=== PATIENT | male | born 1955 | race African-American/Black ===

== ENCOUNTER 2018-05-03 19:06 | Inpatient (IN) | payer MEDICAID ==
[~2018-05-03] VITALS: Ht 180.3 cm; Wt 129.3 kg
[~2018-05-03 19:06] MED LIST: ASPI-1159 PO; ATOR40TA70 PO; GLIM4TAB2 PO
[2018-05-03] MEDS ORDERED: SODIUM CHLORIDE 0.9% 1,000 ML IV ONE (20:40)
[2018-05-03] MEDS ORDERED: RANI150C12 MT (21:08)
[2018-05-03] MEDS ORDERED: OMEP40CA34 MT (21:08)
[2018-05-03] MEDS ORDERED: AMLO5TAB88 MT (21:08)
[2018-05-03] MEDS ORDERED: EZET10TA26 MT (21:08)
[2018-05-03] MEDS ORDERED: LISI-604 MT (21:08)
[2018-05-03] MEDS ORDERED: CLONIDINE 0.1MG TABLET PO ONE (21:15)
[2018-05-03 23:22] LABS: BASOPHILS % 0.3 % (0.0-2.0); EOSINOPHILS % 0.1 % (0.0-5.0); HEMATOCRIT. 29.4 % (42.0-52.0); HEMOGLOBIN. 9.4 g/dL (14.0-18.0); LYMPHOCYTES % 11.2 % (20.0-50.0); MEAN CORPUSCULAR VOLUME 84.1 fL (80.0-94.0); MEAN PLATELET VOLUME 8.3 fl (7.4-10.4); MONOCYTES % 5.7 % (2.0-8.0); NEUTROPHILS % 82.7 % (40.0-76.0); PLATELET 257 x1000/uL (130-400); RED CELL DISTRIBUTION WIDTH 15.4 % (11.6-14.6)
[2018-05-03 23:28] LABS: CHLORIDE 112 mEq/L (98-107); PROTHROMBIN TIME 10.1 sec (9.1-11.1)
[2018-05-03] MEDS ORDERED: DEXTROSE 50% WATER 50ML SYRINGE IV ONE (23:45)
[2018-05-04] MEDS ORDERED: ASPIRIN 81MG TABLET PO SCH (00:45)
[2018-05-04] MEDS ORDERED: FUROSEMIDE 40MG/4ML VIAL IVP SCH (00:45)
[2018-05-04] MEDS ORDERED: DEXTROSE 50% WATER 50ML SYRINGE IV ONE (06:15)
[2018-05-04] MEDS ORDERED: DOCUSATE SODIUM 100MG CAPSULE PO PRN (10:30)
[2018-05-04] MEDS ORDERED: HYDRALAZINE 20MG/ML VIAL IV SCH (10:30)
[2018-05-04] MEDS ORDERED: LORAZEPAM 0.5MG TABLET PO PRN (10:30)
[2018-05-04] MEDS ORDERED: ACETAMINOPHEN 325MG TABLET PO PRN (10:30)
[2018-05-04] MEDS ORDERED: HYDROCODONE/ACETAMINOPHEN 5/325MG TABLET PO PRN (10:30)
[2018-05-04] MEDS ORDERED: ONDANSETRON HCL 4MG/2ML INJ IV PRN (10:30)
[2018-05-04] MEDS ORDERED: IPRATROPIUM/ALBUTEROL 0.5-3(2.5)MG/3ML NEB INH PRN (10:30)
[2018-05-04] MEDS ORDERED: AMLODIPINE 5MG TABLET PO SCH (10:30)
[2018-05-04] MEDS: ATORVASTATIN CALCIUM 40MG TABLET PO SCH (11:18)
[2018-05-04] MEDS: ASPIRIN 81MG TABLET PO SCH (11:18)
[2018-05-04 11:27] VITALS: BP 186/104
[2018-05-04 12:00] VITALS: BP 190/101
[2018-05-04 13:47] LABS: PHOSPHORUS 3.6 mg/dL (2.5-4.9)
[2018-05-04 13:53] LABS: CREATINE KINASE MB FRACTION 5.8 ng/mL (0.5-3.6)
[2018-05-04 16:00] VITALS: BP 186/99
[2018-05-04] MEDS: CLONIDINE 0.1MG TABLET PO PRN (16:39)
[2018-05-04] MEDS: FUROSEMIDE 40MG TABLET PO SCH (16:39)
[2018-05-04 20:00] VITALS: BP 149/82
[2018-05-04] MEDS: AMLODIPINE 5MG TABLET PO SCH (21:01)
[2018-05-04] MEDS: DOXAZOSIN MESYLATE 4MG TABLET PO SCH (21:01)
[2018-05-04] MEDS ORDERED: DEXTROSE 50% WATER 50ML SYRINGE IV PRN (22:15)
[2018-05-04] MEDS: INSULIN GLARGINE UD 100 UNITS/ML SYR SUBCUT SCH (22:17)
[2018-05-05] VITALS: BP 158/79
[2018-05-05 00:07] LABS: CLARITY URINE CLEAR (CLEAR); COLOR URINE YELLOW (YELLOW); KETONES URINE NEGATIVE (NEGATIVE); LEUKOCYTE ESTERASE URINE NEGATIVE (NEGATIVE); NITRITE URINE NEGATIVE (NEGATIVE); OCCULT BLOOD URINE 1+ (NEGATIVE); PH URINE 6.5 (4.5-8.0); PROTEIN URINE 4+ (NEGATIVE); SPECIFIC GRAVITY URINE 1.016 (1.005-1.030); UROBILINOGEN URINE 0.2 E.U./dL (0.2-1.0)
[2018-05-05 00:50] LABS: *AMPHETAMINES SCREEN URINE NEGATIVE (NEGATIVE); *BARBITURATES SCREEN URINE NEGATIVE (NEGATIVE)
[2018-05-05 00:51] LABS: *BENZODIAZEPINES SCREEN URINE NEGATIVE (NEGATIVE); *COCAINE SCREEN URINE NEGATIVE (NEGATIVE)
[2018-05-05 00:52] LABS: CANNABINOID URINE SCREEN NEGATIVE (NEGATIVE); METHADONE URINE SCREEN NEGATIVE (NEGATIVE); OPIATES URINE SCREEN NEGATIVE (NEGATIVE); PHENCYCLIDINE URINE SCREEN NEGATIVE (NEGATIVE)
[2018-05-05 04:00] VITALS: BP 160/92
[2018-05-05] MEDS: BLOOD SUGAR DIAGNOSTIC STRIP TEST SCH ×4 (05:57→21:00)
[2018-05-05] MEDS: INSULIN LISPRO 100 UNITS/ML SUBCUT SCH ×4 (06:00→21:00)
[2018-05-05 08:00] VITALS: BP 155/76
[2018-05-05] MEDS: FUROSEMIDE 40MG TABLET PO SCH (08:24)
[2018-05-05] MEDS: ATORVASTATIN CALCIUM 40MG TABLET PO SCH (08:24)
[2018-05-05] MEDS: AMLODIPINE 5MG TABLET PO SCH ×2 (08:25→21:14)
[2018-05-05] MEDS: ASPIRIN 81MG TABLET PO SCH (08:25)
[2018-05-05] MEDS: INSULIN GLARGINE UD 100 UNITS/ML SYR SUBCUT SCH ×2 (10:45→21:20)
[2018-05-05 16:00] VITALS: BP 157/83
[2018-05-05 16:07] LABS: HEPATITIS A AB IGM NEGATIVE (NEGATIVE)
[2018-05-05] MEDS: CLONIDINE 0.1MG TABLET PO PRN (17:46)
[2018-05-05] MEDS: DOXAZOSIN MESYLATE 4MG TABLET PO SCH (21:14)
[2018-05-05 21:46] VITALS: BP 167/87
[2018-05-06] VITALS: BP 175/86
[2018-05-06] MEDS: CLONIDINE 0.1MG TABLET PO PRN (00:44)
[2018-05-06 04:30] VITALS: BP 157/81
[2018-05-06] MEDS: BLOOD SUGAR DIAGNOSTIC STRIP TEST SCH ×2 (06:46→12:02)
[2018-05-06] MEDS: INSULIN LISPRO 100 UNITS/ML SUBCUT SCH ×2 (06:46→12:02)
[2018-05-06] MEDS: ASPIRIN 81MG TABLET PO SCH (09:02)
[2018-05-06] MEDS: AMLODIPINE 5MG TABLET PO SCH (09:02)
[2018-05-06] MEDS: FUROSEMIDE 40MG TABLET PO SCH (09:02)
[2018-05-06] MEDS: ATORVASTATIN CALCIUM 40MG TABLET PO SCH (09:02)
[2018-05-06] MEDS: INSULIN GLARGINE UD 100 UNITS/ML SYR SUBCUT SCH (10:03)
[2018-05-06 12:51] VITALS: BP 152/82
[2018-05-06] MEDS ORDERED: DOXA4TAB2 PO (15:35)
[2018-05-06] MEDS ORDERED: LANTUSUD SUBCUT (15:35)
[2018-05-06] MEDS ORDERED: COR6 PO (15:35)
[2018-05-06] MEDS ORDERED: AMLO5TAB88 PO (15:35)
[2018-05-06 16:54] VITALS: BP 167/75
[2018-05-06 18:06] LABS: HEPATITIS B SURFACE ANTIGEN NEGATIVE
[2018-05-06] MEDS ORDERED: CARVEDILOL 6.25 MG TABLET PO SCH (21:00)
[2018-05-07 13:07] LABS: A/G RATIO 0.7 (0.7-1.7); ALBUMIN 2.1 g/dL (2.9-4.4); ALPHA-1-GLOBULIN 0.2 g/dL (0.0-0.4); ALPHA-2-GLOBULIN 0.7 g/dL (0.4-1.0); GAMMA GLOBULINS 1.1 g/dL (0.4-1.8); GLOBULIN TOTAL 3.1 g/dL (2.2-3.9); M-SPIKE Not Observed g/dL (Not Observed); TOTAL PROTEIN SERUM 5.2 g/dL (6.0-8.5)
[2018-05-10 05:10] LABS: ALDOSTERONE < 1.0 ng/dL (0.0-30.0)
== END 2018-05-06 18:10 | disposition home health service (06) | DRG 951 ==
LOC: ER 19:06 → 8WST 05-04 00:34 → ENRESERV 05-04 07:17 → 8WST 05-04 10:13
PROVIDERS: ADMIT Internal Medicine; ATTEND Internal Medicine
PROC: 0KBW0ZZ Excision of Left Foot Muscle, Open Approach (ICD-10-PCS; principal; 2018-05-05)
DX: E11.52 Type 2 diabetes mellitus with diabetic peripheral angiopathy with gangrene (principal); E43 Unspecified severe protein-calorie malnutrition; N17.9 Acute kidney failure, unspecified; I96 Gangrene, not elsewhere classified; E11.22 Type 2 diabetes mellitus with diabetic chronic kidney disease; E27.8 Other specified disorders of adrenal gland; M62.82 Rhabdomyolysis; E11.42 Type 2 diabetes mellitus with diabetic polyneuropathy; L97.529 Non-pressure chronic ulcer of other part of left foot with unspecified severity; E11.319 Type 2 diabetes mellitus with unspecified diabetic retinopathy without macular edema; E11.649 Type 2 diabetes mellitus with hypoglycemia without coma; I16.0 Hypertensive urgency; R55 Syncope and collapse; D64.9 Anemia, unspecified; E78.5 Hyperlipidemia, unspecified; D72.829 Elevated white blood cell count, unspecified; I13.10 Hypertensive heart and chronic kidney disease without heart failure, with stage 1 through stage 4 chronic kidney disease, or unspecified chronic kidney disease; I87.8 Other specified disorders of veins; L57.0 Actinic keratosis; N18.2 Chronic kidney disease, stage 2 (mild); E88.09 Other disorders of plasma-protein metabolism, not elsewhere classified; E66.01 Morbid (severe) obesity due to excess calories; N52.9 Male erectile dysfunction, unspecified; Z79.4 Long term (current) use of insulin; Z86.73 Personal history of transient ischemic attack (TIA), and cerebral infarction without residual deficits; Z91.19 Patient's noncompliance with other medical treatment and regimen; Z87.891 Personal history of nicotine dependence; Z82.49 Family history of ischemic heart disease and other diseases of the circulatory system; Z79.899 Other long term (current) drug therapy; Z79.84 Long term (current) use of oral hypoglycemic drugs; Z79.82 Long term (current) use of aspirin; Z68.39 Body mass index [BMI] 39.0-39.9, adult; Z71.3 Dietary counseling and surveillance
CPT/HCPCS: 36415; 71045; 76770; 76857; 80048; 80061; 80305; 82088; 82550; 82553; 82570; 82962; 83036; 83735; 83880; 84100; 84155; 84156; 84165; 84244; 84443; 84484; 86705; 86709; 86803; 87340; 93005; 93306; 93923; 96374; 96375; 99291; J0360; J1815; J1940; J7030; J7620

== ENCOUNTER 2018-07-21 13:40 | Emergency (ER) | payer MEDICAID ==
[~2018-07-21] VITALS: Ht 175.3 cm; Wt 137.0 kg
[~2018-07-21 13:40] MED LIST changes: +AMLO5TAB88 PO; +COR6 PO; +DOXA4TAB2 PO; +EZET10TA26 MT; -GLIM4TAB2 PO; +LANTUSUD SUBCUT; +OMEP40CA34 MT
[2018-07-21] MEDS ORDERED: CLONIDINE 0.2MG TABLET PO ONE (16:45)
[2018-07-21 17:45] VITALS: BP 189/100
== END 2018-07-21 17:46 | disposition home or self-care (01) ==
LOC: ER 13:40
DX: T62.8X1A Toxic effect of other specified noxious substances eaten as food, accidental (unintentional), initial encounter (principal); Y92.89 Other specified places as the place of occurrence of the external cause; E11.9 Type 2 diabetes mellitus without complications; E78.00 Pure hypercholesterolemia, unspecified; I10 Essential (primary) hypertension; Z86.73 Personal history of transient ischemic attack (TIA), and cerebral infarction without residual deficits; Z79.82 Long term (current) use of aspirin; Z79.899 Other long term (current) drug therapy; Z79.4 Long term (current) use of insulin
CPT/HCPCS: 99283; Z7610; A4315

== ENCOUNTER 2018-12-28 19:31 | Inpatient (IN) | payer MEDICARE, MEDICAID ==
[~2018-12-28] VITALS: Ht 180.3 cm; Wt 147.4 kg
[~2018-12-28 19:31] MED LIST changes: -ASPI-1159 PO; +ASPI-1393 PO
[2018-12-28] MEDS ORDERED: ASPIRIN 81MG TABLET PO ONE (21:00)
[2018-12-28] MEDS ORDERED: FUROSEMIDE 40MG/4ML VIAL IVP ONE (21:00)
[2018-12-28 21:19] LABS: CHLORIDE 117 mEq/L (98-107)
[2018-12-28 21:21] LABS: INR 1.1; PARTIAL THROMBOPLASTIN TIME 29.5 sec (23.4-31.0); PROTHROMBIN TIME 11.3 sec (9.6-11.0)
[2018-12-28 21:32] LABS: BASOPHILS % 0.8 % (0.0-2.0); EOSINOPHILS % 2.3 % (0.0-5.0); LYMPHOCYTES % 11.4 % (20.0-50.0); MEAN CORPUSCULAR HEMOGLOBIN 26.8 pg (28.0-32.0); MEAN CORPUSCULAR VOLUME 81.5 fL (80.0-94.0); MEAN PLATELET VOLUME 7.3 fl (7.4-10.4); MONOCYTES % 9.5 % (2.0-8.0); PLATELET 251 x1000/uL (130-400); RED BLOOD CELL COUNT 2.47 mill/uL (4.7-6.1)
[2018-12-28 21:33] LABS: HEMOGLOBIN. 6.6 g/dL (14.0-18.0)
[2018-12-28 21:34] LABS: HEMATOCRIT. 20.1 % (42.0-52.0)
[2018-12-28] MEDS ORDERED: FUROSEMIDE 100MG/10ML VIAL IV STA (22:17)
[2018-12-28] MEDS ORDERED: MAGNESIUM/ALUMINUM HYDROXIDE/SIMETHICONE 30ML UDC PO PRN (22:30)
[2018-12-28] MEDS ORDERED: ONDANSETRON HCL 4MG/2ML INJ IV PRN (22:30)
[2018-12-28] MEDS ORDERED: GUAIFENESIN 200MG/10ML SUGAR FREE UDC PO PRN (22:30)
[2018-12-28] MEDS ORDERED: SODIUM BICARBONATE 8.4% 1 MEQ/ML 50ML SYR IV ONE (22:30)
[2018-12-28] MEDS ORDERED: ALBUTEROL (0.083%) 2.5MG/3ML NEB HHN ONE (22:30)
[2018-12-28] MEDS ORDERED: CALCIUM GLUCONATE 100MG/ML 10ML VIAL IV ONE (22:30)
[2018-12-28] MEDS ORDERED: DOCUSATE SODIUM 100MG CAPSULE PO PRN (22:30)
[2018-12-28] MEDS ORDERED: DEXTROSE 50% WATER 50ML SYRINGE IV ONE (22:30)
[2018-12-28] MEDS ORDERED: SODIUM POLYSTYRENE SULFONATE 15 G/60 ML BOT PO ONE (22:30)
[2018-12-28] MEDS ORDERED: ACETAMINOPHEN 325MG TABLET PO PRN (22:30)
[2018-12-28] MEDS ORDERED: INSULIN REGULAR (HUMULIN R) 300UNITS/3ML IV ONE (22:30)
[2018-12-29] MEDS ORDERED: SODIUM POLYSTYRENE SULFONATE 15 G/60 ML BOT PO SCH (01:00)
[2018-12-29] MEDS ORDERED: DEXTROSE 50% WATER 50ML SYRINGE IV ONE ×2 (01:12→01:56)
[2018-12-29 02:31] VITALS: BP 167/85
[2018-12-29] MEDS ORDERED: SODIUM CHLORIDE 0.45% 1,000 ML IV SCH (03:10)
[2018-12-29] MEDS ORDERED: LISI-604 MT (03:29)
[2018-12-29 04:00] VITALS: BP 145/86
[2018-12-29] MEDS ORDERED: DEXTROSE 50% WATER 50ML SYRINGE IV PRN (06:45)
[2018-12-29] MEDS: INSULIN LISPRO 100 UNITS/ML SUBCUT SCH ×4 (07:50→21:00)
[2018-12-29 08:00] VITALS: BP 177/89
[2018-12-29] MEDS: BLOOD SUGAR DIAGNOSTIC STRIP TEST SCH ×4 (08:06→21:00)
[2018-12-29] MEDS ORDERED: FUROSEMIDE 40MG/4ML VIAL IVP NR (09:00)
[2018-12-29] MEDS ORDERED: SODIUM POLYSTYRENE SULFONATE 15 G/60 ML BOT PO NR (09:00)
[2018-12-29 09:22] LABS: BG BASE EXCESS -10.9 mmol/L (-2.0-2.0); BG CARBOXYHEMOGLOBIN 0.8 % (0.5-1.5); BG DEOXYHEMOGLOBIN 4.3 % (0.0-5.0); BG FRACTION INSPIRED OXYGEN 21; BG HCO3 ACT 14.3 mmol/L (22.0-26.0); BG METHEMOGLOBIN 0.3 % (0.0-1.5); BG OXYGEN SATURATION 95.7 % (92.0-98.5); BG OXYHEMOGLOBIN 94.6 % (94.0-97.0); BG PCO2 28.5 mmHg (35.0-45.0); BG PH 7.317 (7.350-7.450); BG PO2 85.9 mmHg (75.0-100.0); BG SAMPLE SITE RIGHT FEMORAL; BG TOTAL HEMOGLOBIN 6.5 g/dL (12.0-18.0); BG VENT MODE ROOM AIR
[2018-12-29] MEDS: CITRIC ACID/SODIUM CITRATE SOLN 30ML UDC PO SCH ×3 (09:51→17:00)
[2018-12-29] MEDS: CLONIDINE 0.1MG TABLET PO PRN (09:51)
[2018-12-29] MEDS: AMLODIPINE 10MG TABLET PO SCH (09:51)
[2018-12-29 12:00] VITALS: BP 163/79
[2018-12-29 15:54] LABS: *COCAINE SCREEN URINE NEGATIVE (NEGATIVE); CANNABINOID URINE SCREEN NEGATIVE (NEGATIVE); METHADONE URINE SCREEN NEGATIVE (NEGATIVE); OPIATES URINE SCREEN NEGATIVE (NEGATIVE); PHENCYCLIDINE URINE SCREEN NEGATIVE (NEGATIVE)
[2018-12-29 15:57] LABS: *BENZODIAZEPINES SCREEN URINE NEGATIVE (NEGATIVE)
[2018-12-29 16:00] VITALS: BP 129/81
[2018-12-29 16:01] LABS: *AMPHETAMINES SCREEN URINE NEGATIVE (NEGATIVE); *BARBITURATES SCREEN URINE NEGATIVE (NEGATIVE)
[2018-12-29 18:04] LABS: BASOPHILS % 1.1 % (0.0-2.0); LYMPHOCYTES % 14.9 % (20.0-50.0); MEAN CORPUSCULAR HEMOGLOBIN 26.5 pg (28.0-32.0); MEAN CORPUSCULAR VOLUME 81.9 fL (80.0-94.0); MEAN PLATELET VOLUME 7.5 fl (7.4-10.4); MONOCYTES % 10.4 % (2.0-8.0); NEUTROPHILS % 71.6 % (40.0-76.0); PLATELET 233 x1000/uL (130-400); RED BLOOD CELL COUNT 2.26 mill/uL (4.7-6.1)
[2018-12-29 18:11] LABS: HEMATOCRIT. 18.5 % (42.0-52.0)
[2018-12-29 18:25] LABS: PHOSPHORUS 6.7 mg/dL (2.5-4.9)
[2018-12-29 20:00] VITALS: BP 161/82
[2018-12-29] MEDS ORDERED: EPOETIN ALFA 10000UNITS/ML VIAL SUBCUT NR (21:00)
[2018-12-30] VITALS (9 sets, daily range): BP systolic 135–183; BP diastolic 68–92
[2018-12-30] MEDS ORDERED: EPOETIN ALFA 10000UNITS/ML VIAL SUBCUT NR
[2018-12-30] MEDS: BLOOD SUGAR DIAGNOSTIC STRIP TEST SCH ×4 (07:12→21:00)
[2018-12-30] MEDS: INSULIN LISPRO 100 UNITS/ML SUBCUT SCH ×4 (07:50→21:00)
[2018-12-30] MEDS: CITRIC ACID/SODIUM CITRATE SOLN 30ML UDC PO SCH ×3 (09:00→19:03)
[2018-12-30] MEDS: AMLODIPINE 10MG TABLET PO SCH (09:00)
[2018-12-30] MEDS: FUROSEMIDE 40MG/4ML VIAL IVP SCH (10:09)
[2018-12-30] MEDS ORDERED: MAGNESIUM 2 G PREMIX 50 ML IV NR (10:30)
[2018-12-30 12:45] LABS: BASOPHILS % 0.9 % (0.0-2.0); EOSINOPHILS % 2.5 % (0.0-5.0); LYMPHOCYTES % 17.9 % (20.0-50.0); MEAN CORPUSCULAR HEMOGLOBIN 26.6 pg (28.0-32.0); MEAN CORPUSCULAR VOLUME 81.7 fL (80.0-94.0); MEAN PLATELET VOLUME 7.2 fl (7.4-10.4); MONOCYTES % 10.4 % (2.0-8.0); NEUTROPHILS % 68.3 % (40.0-76.0); PLATELET 242 x1000/uL (130-400); RED BLOOD CELL COUNT 2.29 mill/uL (4.7-6.1); RED CELL DISTRIBUTION WIDTH 19.7 % (11.6-14.6)
[2018-12-30 12:50] LABS: HEMATOCRIT. 18.7 % (42.0-52.0); HEMOGLOBIN. 6.1 g/dL (14.0-18.0)
[2018-12-30] MEDS: CALCIUM ACETATE 667MG CAPSULE PO SCH ×2 (12:50→19:03)
[2018-12-30 12:58] LABS: PHOSPHORUS 6.2 mg/dL (2.5-4.9)
[2018-12-30] MEDS: CLONIDINE 0.1MG TABLET PO PRN (19:03)
[2018-12-31 00:23] VITALS: BP 135/80
[2018-12-31 04:00] VITALS: BP 144/80
[2018-12-31] MEDS: BLOOD SUGAR DIAGNOSTIC STRIP TEST SCH ×4 (07:20→21:10)
[2018-12-31] MEDS: INSULIN LISPRO 100 UNITS/ML SUBCUT SCH ×4 (07:50→21:10)
[2018-12-31 08:34] VITALS: BP 159/84
[2018-12-31] MEDS: AMLODIPINE 10MG TABLET PO SCH (09:27)
[2018-12-31] MEDS: CALCIUM ACETATE 667MG CAPSULE PO SCH ×3 (09:27→17:31)
[2018-12-31] MEDS: FUROSEMIDE 40MG/4ML VIAL IVP SCH (09:28)
[2018-12-31] MEDS: CITRIC ACID/SODIUM CITRATE SOLN 30ML UDC PO SCH ×3 (09:40→17:00)
[2018-12-31 12:17] VITALS: BP 178/96
[2018-12-31 15:58] VITALS: BP 158/77
[2018-12-31 17:24] LABS: BASOPHILS % 0.9 % (0.0-2.0); EOSINOPHILS % 2.2 % (0.0-5.0); HEMATOCRIT. 21.4 % (42.0-52.0); MEAN CORPUSCULAR HEMOGLOBIN 26.9 pg (28.0-32.0); MEAN PLATELET VOLUME 7.6 fl (7.4-10.4); MONOCYTES % 11.2 % (2.0-8.0); NEUTROPHILS % 71.7 % (40.0-76.0); PLATELET 248 x1000/uL (130-400); RED CELL DISTRIBUTION WIDTH 18.9 % (11.6-14.6)
[2018-12-31 17:57] LABS: PHOSPHORUS 5.6 mg/dL (2.5-4.9)
[2018-12-31 20:42] VITALS: BP 166/91
[2018-12-31] MEDS: ATORVASTATIN CALCIUM 20MG TABLET PO SCH (21:04)
[2018-12-31] MEDS: CLONIDINE 0.1MG TABLET PO PRN (21:04)
[2019-01-01] VITALS: BP 143/77
[2019-01-01 04:00] VITALS: BP 151/75
[2019-01-01] MEDS: BLOOD SUGAR DIAGNOSTIC STRIP TEST SCH ×4 (06:27→21:00)
[2019-01-01] MEDS: INSULIN LISPRO 100 UNITS/ML SUBCUT SCH ×4 (07:50→21:00)
[2019-01-01 08:39] VITALS: BP 166/87
[2019-01-01] MEDS: AMLODIPINE 10MG TABLET PO SCH (08:40)
[2019-01-01] MEDS: CALCIUM ACETATE 667MG CAPSULE PO SCH ×3 (08:41→17:09)
[2019-01-01] MEDS: FUROSEMIDE 40MG/4ML VIAL IVP SCH (08:43)
[2019-01-01] MEDS: CITRIC ACID/SODIUM CITRATE SOLN 30ML UDC PO SCH ×3 (08:44→17:09)
[2019-01-01] MEDS: METOPROLOL TARTRATE 25MG TABLET PO SCH ×2 (09:00→22:08)
[2019-01-01] MEDS ORDERED: MAGNESIUM 2 G PREMIX 50 ML IV NR (10:30)
[2019-01-01 12:00] VITALS: BP 155/82
[2019-01-01 15:26] VITALS: BP 147/74
[2019-01-01 20:00] VITALS: BP_SYST 152; BP_SYST 170; BP_DIAS 80; BP_DIAS 98
[2019-01-01] MEDS ORDERED: EPOETIN ALFA 10000UNITS/ML VIAL SUBCUT SCH (21:00)
[2019-01-01] MEDS: ATORVASTATIN CALCIUM 20MG TABLET PO SCH (22:07)
[2019-01-01] MEDS: CLONIDINE 0.1MG TABLET PO PRN (22:08)
[2019-01-02] VITALS: BP 123/73
[2019-01-02] MEDS: BLOOD SUGAR DIAGNOSTIC STRIP TEST SCH ×2 (06:46→12:20)
[2019-01-02] MEDS: INSULIN LISPRO 100 UNITS/ML SUBCUT SCH (07:50)
[2019-01-02 08:33] VITALS: BP 154/81
[2019-01-02] MEDS: CALCIUM ACETATE 667MG CAPSULE PO SCH (09:00)
[2019-01-02] MEDS: AMLODIPINE 10MG TABLET PO SCH (09:00)
[2019-01-02] MEDS: FUROSEMIDE 40MG/4ML VIAL IVP SCH (09:00)
[2019-01-02] MEDS: METOPROLOL TARTRATE 25MG TABLET PO SCH (09:00)
[2019-01-02] MEDS: CITRIC ACID/SODIUM CITRATE SOLN 30ML UDC PO SCH (09:00)
[2019-01-02 12:10] VITALS: BP 165/89
[2019-01-02 12:34] VITALS: BP_SYST 154; BP_SYST 165; BP_DIAS 81; BP_DIAS 89
== END 2019-01-02 13:05 | disposition home or self-care (01) | DRG 291 ==
LOC: ER 19:31 → 6WST 22:14 → EDBEDREQTM 22:16 → EDBEDREQ 22:16 → ENRESERV 23:18
PROVIDERS: ADMIT Hospitalist; ATTEND Hospitalist
PROC: 5A1D70Z Performance of Urinary Filtration, Intermittent, Less than 6 Hours Per Day (ICD-10-PCS; 2018-12-29)
PROC: 30233N1 Transfusion of Nonautologous Red Blood Cells into Peripheral Vein, Percutaneous Approach (ICD-10-PCS; principal; 2018-12-30)
DX: I13.0 Hypertensive heart and chronic kidney disease with heart failure and stage 1 through stage 4 chronic kidney disease, or unspecified chronic kidney disease (principal); I50.33 Acute on chronic diastolic (congestive) heart failure; J96.90 Respiratory failure, unspecified, unspecified whether with hypoxia or hypercapnia; E43 Unspecified severe protein-calorie malnutrition; N17.9 Acute kidney failure, unspecified; E87.2 Acidosis; Z68.42 Body mass index [BMI] 45.0-49.9, adult; E78.5 Hyperlipidemia, unspecified; E87.5 Hyperkalemia; E11.22 Type 2 diabetes mellitus with diabetic chronic kidney disease; D63.8 Anemia in other chronic diseases classified elsewhere; N18.3 Chronic kidney disease, stage 3 (moderate); E11.42 Type 2 diabetes mellitus with diabetic polyneuropathy; E11.51 Type 2 diabetes mellitus with diabetic peripheral angiopathy without gangrene; E11.622 Type 2 diabetes mellitus with other skin ulcer; E66.01 Morbid (severe) obesity due to excess calories; E78.00 Pure hypercholesterolemia, unspecified; L98.499 Non-pressure chronic ulcer of skin of other sites with unspecified severity; Z53.20 Procedure and treatment not carried out because of patient's decision for unspecified reasons; Z82.49 Family history of ischemic heart disease and other diseases of the circulatory system; Z83.3 Family history of diabetes mellitus; Z86.73 Personal history of transient ischemic attack (TIA), and cerebral infarction without residual deficits; Z87.891 Personal history of nicotine dependence; Z91.19 Patient's noncompliance with other medical treatment and regimen; Z79.84 Long term (current) use of oral hypoglycemic drugs
CPT/HCPCS: 36415; 36600; 71045; 76770; 80048; 80305; 82375; 82550; 82805; 82962; 83735; 83880; 84100; 84484; 86850; 86870; 86900; 86920; 93005; 93970; 94640; 97022; 97116; 97162; 97530; 99285; J0610; J0885; J1815; J1940; J3475; J3490; J7040; J7611; P9016